=== PATIENT | female | born 1995 | race Caucasian/White ===

== ENCOUNTER 2017-11-21 18:27 | Emergency (ER) | payer OTHER ==
[2017-11-21] MEDS ORDERED: methylPREDNISolone SOD SUCC 125 MG/2 ML VIAL ONE (19:24)
--- NOTE | 2017-11-21 22:24 | EDPHY ---
H & P Time Seen by Provider: 11/21/17 18:45 HPI/ROS: CHIEF COMPLAINT: Left facial nerve palsy HISTORY OF PRESENT ILLNESS: This patient is a 22 year old female arriving at the request of her primary care provider for evaluation of left facial nerve palsy. One week ago, 11/13/17, the patient fell and had a head injury and temporal bone fracture. She was hospitalized in [place] and then discharged. She had no facial weakness or other neurologic deficits at that time. On Monday, three days ago, she began to develop some left-sided facial weakness. Today, she noted left- sided droop, an asymmetrical smile, and lack of taste on the left side of her tongue. She endorses some decreased hearing in her left ear, but thinks this has been ongoing since her initial injury. She denies facial numbness. She denies numbness or paresthesias in her extremities. No neck or back pain. She was evaluated by her primary care provider today, who suggested she present here to the ED for further evaluation. The patient is also scheduled to follow up with otolaryngology tomorrow. She denies fever, chest pain, shortness of breath, vomiting, or other associated symptoms. REVIEW OF SYSTEMS: A comprehensive 10 point review of systems is otherwise negative aside from elements mentioned in the history of present illness. Source: Patient - Medical/Surgical History PMH: Head injury, temporal bone fracture. - Family History Significant Family History: No pertinent family hx - Social History Smoking Status: Never smoked Additional Social History: Mother at bedside. Single. PCP: Dr. Sequeira. - Physical Exam Exam: General Appearance: Alert, no distress Head: Normocephalic, atraumatic, left hemotympanum Eyes: Pupils equal and round no pallor or injection ENT, Mouth: Mucous membranes moist Respiratory: There are no retractions, lungs are clear to auscultation Cardiovascular: Regular rate and rhythm Gastrointestinal: Abdomen is soft and non tender, no masses, bowel sounds normal Neurological: A&O. Unilateral left facial paralysis consistent with a peripheral cranial nerve 7 palsy. Remainder of neurologic examination is normal without any focal deficits appreciated exam. Skin: Warm and dry, no rashes Musculoskeletal: Neck is supple non tender, no bruit, no carotid tenderness Extremities: Symmetrical, full range of motion Psychiatric: Patient is oriented X 3, there is no agitation Medical Decision Making - Diagnostics Imaging Results: Reviewed outpatient CT scan from earlier today which demonstrates a temporal bone fracture without evidence of intracranial hemorrhage, stroke or mass effect. ED Course/Re-evaluation: 22 y/o female presents with left facial nerve palsy onset three days ago. History of recent temporal bone fracture following a fall 1 week ago. On exam, the patient's facial weakness appears in a peripheral pattern consistent with peripheral nerve injury rather than CVA. Patient has no other signs consistent with CVA. Plan to consult with neurosurgery. 19:[address] Mathur neurosurgeon electronics technology department chair. He will review the patient's case. 19:[address] Mathur. Plan to administer 125mg IV Solumedrol. She will take a Medrol DosePak starting tomorrow and follow up with Dr. Jauregui neurosurgeon, in the office. The patient does have a follow-up appointment tomorrow with the ENT and audiology. Reassessed patient. I discussed my conversation with neurosurgery with the patient and her mother. Plan to discharge home in good condition. She will follow up with neurosurgery and ENT as planned. Return precautions discussed. She is comfortable with this plan. The patient has been instructed to return to the ED immediately should she develop any new neurologic symptoms as this would be unexpected. Differential Diagnosis: Differential diagnosis considered includes facial nerve palsy, stroke, intracranial hemorrhage Departure - Departure Disposition: Home, Routine, Self-Care Clinical Impression: Facial nerve palsy Condition: Good Instructions: Skull Fracture (ED), Carlos Palsy (ED) Additional Instructions: 1. Take Medrol Dosepak as prescribed 2. Follow up with edelmira Maeurgejane, tomorrow for further evaluation. 3. Return to the emergency department for headache, numbness or weakness in your extremities, or other worsening of condition or further concerns. Referrals: Clarissa Kohler MD [Primary Care Provider] - As per Instructions Report Scribed for: Franklin Dawson Report Scribed by: Mary Kate Almonte Date of Report: 11/21/17 Time of Report: 22:23
== END 2017-11-21 20:00 | disposition home or self-care (01) ==
DX: G51.0 Bell's palsy (principal)
CPT/HCPCS: J2930